=== PATIENT | female | born 1985 | race Caucasian/White ===

== ENCOUNTER 2019-08-31 10:15 | Emergency (ER) | payer OTHER ==
[2019-08-31] MEDS ORDERED: Sodium Chloride 0.9% 10 ML Syringe FLUSH PRN (10:21)
[2019-08-31] MEDS ORDERED: Sodium Chloride 0.9% 1,000 ML IV SCH (10:30)
--- NOTE | 2019-08-31 10:59 | EDM.PDOC ---
ED HPI GENERAL MEDICAL PROBLEM - General Chief Complaint: Neurological Problem Stated Complaint: [facility] Time Seen by Provider: 08/31/19 10:21 Source of Information: Reports: Patient, EMS, Family History Limitations: Reports: No Limitations - History of Present Illness INITIAL COMMENTS - FREE TEXT/NARRATIVE: The patient presents by [facility] for a seizure. The patient was at a swim meat watching in the stands. EMS and her say that her right arm raised up and then she went out and had a tonic clonic generalized seizure lasting about a minute and a half. She was post ictal for about a minute and had some slurred speech after. She has a headache now and she is crying. This has never happened before. She has no fever, chills, cough, chest pain, shortness of breath, abdominal pain, nausea or vomiting. She has no numbness or weakness. She has a history of depression and anxiety for which she is on medications. Onset: Sudden Duration: Minutes: Location: Reports: Generalized Quality: Reports: Sharp Severity: Moderate Improves with: Reports: None Worsens with: Reports: None Associated Symptoms: Reports: Headaches. Denies: Chest Pain, Cough, Fever/ Chills, Nausea/Vomiting, Shortness of Breath Treatments [employer]: Reports: IV/IO Headache Pain Score (Numeric/FACES): 8 - Related Data Allergies Allergy/AdvReac Type Severity Reaction Status Date / Time amoxicillin Allergy Rash Verified 08/31/19 10:27 lorazepam [From Ativan] Allergy Other Verified 08/31/19 10:27 ondansetron HCl Allergy Cannot Verified 08/31/19 10:27 [From Zofran (as Remember hydrochloride)] Home Meds: Home Meds Sertraline HCl [Zoloft] 100 mg PO DAILY 01/26/15 [History] Desvenlafaxine Succinate [Desvenlafaxine Succinate ER] 50 mg PO DAILY 08/31/19 [ History] Nortriptyline HCl [Pamelor] 25 mg PO BEDTIME 08/31/19 [History] Propranolol HCl [Propranolol HCl ER] 120 mg PO BEDTIME 08/31/19 [History] Rizatriptan Benzoate [Rizatriptan] 10 mg PO DAILY PRN 08/31/19 [History] hydrOXYzine HCL [Hydroxyzine HCl] 25 mg PO DAILY PRN 08/31/19 [History] Past Medical History Other Musculoskeletal History: broke her right ankle before - 2000 - Infectious Disease History Infectious Disease History: Reports: Chicken Pox - Past Surgical History Other HEENT Surgeries/Procedures: tooth abscess surgery GI Surgical History: Reports: Appendectomy Social & Family History - Family History Family Medical History: Noncontributory ED ROS GENERAL - Review of Systems Review Of Systems: See Below Constitutional: Reports: No Symptoms HEENT: Reports: No Symptoms Respiratory: Reports: No Symptoms Cardiovascular: Reports: No Symptoms Endocrine: Reports: No Symptoms GI/Abdominal: Reports: No Symptoms : Reports: No Symptoms Musculoskeletal: Reports: No Symptoms Skin: Reports: No Symptoms Neurological: Reports: Headache, Seizure - Physical Exam Exam: See Below Exam Limited By: No Limitations General Appearance: Alert, No Apparent Distress Ears: Normal External Exam Nose: Normal Inspection Throat/Mouth: Normal Inspection Head Exam: Atraumatic, Normocephalic Neck: Normal Inspection Respiratory/Chest: No Respiratory Distress, Lungs Clear, Normal Breath Sounds Cardiovascular: Regular Rate, Rhythm, No Edema, No Murmur GI/Abdominal: Soft, Non-Tender, No Organomegaly, No Mass Neuro Exam (Abbreviated): Alert, Oriented, No Motor/Sensory Deficits, Other ( She is upset and crying) Course - Vital Signs Last Recorded V/S: Last Vital Signs Temp 97.6 F 08/31/19 10:22 Pulse 109 H 08/31/19 10:22 Resp 18 08/31/19 10:22 BP 155/123 H 08/31/19 10:22 Pulse Ox 94 L 08/31/19 10:22 - Orders/Labs/Meds Orders: Active Orders 24 hr Category Date Time Status Cardiac Monitoring [RC] . DIRECTED Care 08/31/19 10:22 Active Peripheral IV Care [RC] . DIRECTED Care 08/31/19 10:22 Active Hip Min 2V or 3V w Pelvis Lt [CR] Stat Exams 08/31/19 12:24 Ordered Sodium Chloride 0.9% [Normal Saline] 1,000 ml Med 08/31/19 10:30 Active IV ASDIRECTED Sodium Chloride 0.9% [Saline Flush] Med 08/31/19 10:21 Active 10 ml FLUSH ASDIRECTED PRN Peripheral IV Insertion Adult [OM.PC] Stat Oth 08/31/19 10:21 Ordered Medication Orders Sodium Chloride (Normal Saline) 1,000 mls @ 125 mls/hr IV ASDIRECTED HARINI Last Admin: 08/31/19 10:36 Dose: 125 mls/hr Sodium Chloride (Saline Flush) 10 ml FLUSH ASDIRECTED PRN PRN Reason: Keep Vein Open Last Admin: 08/31/19 10:37 Dose: 10 ml Labs: Laboratory Tests 08/31/19 08/31/19 08/31/19 Range/Units 10:52 10:52 10:52 WBC 9.72 (3.98-10.04) K/mm3 RBC 4.63 (3.98-5.22) M/mm3 Hgb 14.0 (11.2-15.7) gm/dl Hct 40.3 (34.1-44.9) % MCV 87.0 (79.4-94.8) fl MCH 30.2 (25.6-32.2) pg MCHC 34.7 (32.2-35.5) g/dl RDW Std Deviation 40.2 (36.4-46.3) fL Plt Count 269 (182-369) K/mm3 MPV 10.3 (9.4-12.3) fl Neut % (Auto) 66.0 (34.0-71.1) % Lymph % (Auto) 22.7 (19.3-51.7) % [place] % (Auto) 6.6 (4.7-12.5) % Eos % (Auto) 3.9 (0.7-5.8) Baso % (Auto) 0.5 (0.1-1.2) % Neut # (Auto) 6.41 H (1.56-6.13) K/mm3 Lymph # (Auto) 2.21 (1.18-3.74) K/mm3 [place] # (Auto) 0.64 H (0.24-0.36) K/mm3 Eos # (Auto) 0.38 H (0.04-0.36) K/mm3 Baso # (Auto) 0.05 (0.01-0.08) K/mm3 Sodium 137 (136-145) mEq/L Potassium 4.7 (3.5-5.1) mEq/L Chloride 103 (98-107) mEq/L Carbon Dioxide 18 L (21-32) mEq/L Anion Gap 20.7 H (5-15) BUN 17 (7-18) mg/dL Creatinine 1.2 H (0.55-1.02) mg/dL Est Cr Clr Drug Dosing 61.84 mL/min Estimated GFR (MDRD) 51 (>60) mL/min BUN/Creatinine Ratio 14.2 (14-18) Glucose 118 H (74-106) mg/dL Calcium 9.2 (8.5-10.1) mg/dL Magnesium 2.2 (1.8-2.4) mg/dl Total Bilirubin 0.4 (0.2-1.0) mg/dL AST 30 (15-37) U/L ALT 56 (14-59) U/L Alkaline Phosphatase 80 (46-116) U/L Total Protein 7.9 (6.4-8.2) g/dl Albumin 4.1 (3.4-5.0) g/dl Globulin 3.8 gm/dL Albumin/Globulin Ratio 1.1 (1-2) HCG, Qual Negative (NEGATIVE) Ethyl Alcohol 0.00 (0.00) gm% Meds: Medications Generic Name Dose Route Start Last Admin Trade Name Freq PRN Reason Stop Dose Admin Sodium Chloride 1,000 mls @ 125 mls/hr 08/31/19 10:30 08/31/19 10:36 Normal Saline IV 125 mls/hr ASDIRECTED HARINI Administration Sodium Chloride 10 ml 08/31/19 10:21 08/31/19 10:37 Saline Flush FLUSH 10 ml ASDIRECTED PRN Administration Keep Vein Open - Re-Assessments/Exams Free Text/Narrative Re-Assessment/Exam: 08/31/19 10:59 I have ordered an IV saline lock, CT of her head and labs. 08/31/19 12:26 Her CBC looks good. Her anion gap is elevated at 20.7. Her creatinine is elevated at 1.2. Her HCG is negative. Her ETOH is negative. Her CT shows appearance of cytotoxic edema within the left parietal region. This causes mild mass effect upon the lateral left ventricle. Recommend contrast study as difficult to exclude underlying brain mass as etiology of the edema. No evidence of intracranial hemorrhage. 08/31/19 12:35 I called [facility] in [place] and talked with Dr Frias in the ER and Dr Lucas the neurosurgeon and he recommends an MRI but we cannot do that here so I will transfer her down to the ER at [facility] for the MRI. 08/31/19 12:38 She did complain of some left anterior hip pain. I got an x-ray and it looked good. Departure - Departure Time of Disposition: 12:40 Disposition: DC/Tfer to Acute Hospital 02 Condition: Fair Clinical Impression: Seizure, Cytotoxic brain edema Headache Qualifiers: Headache type: unspecified Headache chronicity pattern: acute headache Intractability: not intractable Qualified Code(s): R51 - Headache - Discharge Information Referrals: PCP,Not In Area [Primary Care Provider] - Forms: ED Department Discharge Sepsis Event Note - Evaluation Sepsis Screening Result: No Definite Risk - Focused Exam Vital Signs: Vital Signs Temp Pulse Resp BP Pulse Ox 08/31/19 10:22 97.6 F 109 H 18 155/123 H 94 L Date Exam was Performed: 08/31/19 Time Exam was Performed: 12:35 - My Orders Last 24 Hours: My Active Orders 08/31/19 10:21 Sodium Chloride 0.9% [Saline Flush] 10 ml FLUSH ASDIRECTED PRN Peripheral IV Insertion Adult [OM.PC] Stat 08/31/19 10:22 Cardiac Monitoring [RC] . DIRECTED Peripheral IV Care [RC] . DIRECTED 08/31/19 10:30 Sodium Chloride 0.9% [Normal Saline] 1,000 ml IV ASDIRECTED 08/31/19 12:24 Hip Min 2V or 3V w Pelvis Lt [CR] Stat - Assessment/Plan Last 24 Hours: My Active Orders 08/31/19 10:21 Sodium Chloride 0.9% [Saline Flush] 10 ml FLUSH ASDIRECTED PRN Peripheral IV Insertion Adult [OM.PC] Stat 08/31/19 10:22 Cardiac Monitoring [RC] . DIRECTED Peripheral IV Care [RC] . DIRECTED 08/31/19 10:30 Sodium Chloride 0.9% [Normal Saline] 1,000 ml IV ASDIRECTED 08/31/19 12:24 Hip Min 2V or 3V w Pelvis Lt [CR] Stat
--- NOTE | 2019-08-31 12:15 | CT ---
Head CT Technique: Multiple axial sections through the brain were obtained. Intravenous contrast was not utilized. Comparison: No previous intracranial imaging is available. Findings: Low density area is noted within the left parietal region extending to the convexity. This has the appearance of cytotoxic edema and difficult to exclude underlying mass. Minimal mass effect is seen upon the lateral ventricle. No evidence of intracranial hemorrhage. No midline shift is appreciated. Bone window settings were reviewed which shows no acute calvarial abnormality. Visualized mastoid sinuses and paranasal sinuses are clear. Impression: 1. Appearance of cytotoxic edema within the left parietal region. This causes mild mass effect upon the lateral left ventricle. Recommend contrast study as difficult to exclude underlying brain mass as etiology of the edema. 2. No evidence of intracranial hemorrhage. Diagnostic code #9 This report was dictated in [place] Standard Time
[2019-08-31] MEDS ORDERED: Acetaminophen 325 MG Tab PO ONE (12:38)
[2019-08-31] MEDS ORDERED: levETIRAcetam 500 MG in Sodium Chloride 0.9% 100 ML IV ONE (12:47)
--- NOTE | 2019-08-31 13:15 | CR ---
Pelvis and left hip: AP view of the pelvis was obtained as well as AP and frog-leg lateral views left hip. Prominent acetabulum are seen off the superior hips on both sides. Joint spaces are maintained within both hips as well as joint spaces within both sacroiliac joints are normal. No fracture or other abnormality is seen. Impression: 1. Prominent superior acetabulum off of both hips. This is felt to be a normal variant but does put the patient at risk for premature osteoarthritis. 2. AP pelvis and two-view left hip exam is otherwise unremarkable. Diagnostic code #3 This report was dictated in [place] Standard Time
[2019-08-31 14:19] VITALS: BP 109/70; PULSE 76
== END 2019-08-31 14:00 ==
LOC: JD.ED 10:15
DX: R56.9 Unspecified convulsions (principal); G93.6 Cerebral edema; M25.552 Pain in left hip; F32.9 Major depressive disorder, single episode, unspecified; F41.9 Anxiety disorder, unspecified; Z90.49 Acquired absence of other specified parts of digestive tract; Z79.899 Other long term (current) drug therapy; Z88.1 Allergy status to other antibiotic agents; Z88.8 Allergy status to other drugs, medicaments and biological substances
CPT/HCPCS: 36415; 70450; 73502; 80053; 80320; 83735; 84703; 85025; 96365; 99285; A9270; J1953; J7030; J7050; G0480